=== PATIENT | female | born 1955 | race Caucasian/White ===

== ENCOUNTER 2017-04-30 13:19 | Emergency (ER) | payer OTHER ==
[~2017-04-30] VITALS: Ht 157.5 cm; Wt 70.0 kg
[2017-04-30 13:29] VITALS: BP 200/91; PULSE 97; RESP 16; TEMP 97.9; O2SAT 99
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
== END 2017-04-30 14:25 | disposition home or self-care (01) ==
LOC: PHEFT 13:19
DX: F43.20 Adjustment disorder, unspecified (principal)
CPT/HCPCS: 99281